=== PATIENT | female | born 1995 | race African-American/Black ===

== ENCOUNTER 2020-04-10 10:09 | Inpatient (IN) | payer MEDICAID ==
[~2020-04-10] VITALS: Ht 152.4 cm; Wt 47.2 kg
[2020-04-10] MEDS ORDERED: INFLUENZA VIRUS VACCINE QVS 2020-21 (6MO+)/PF 60 MCG/0.5 ML SYRINGE IM ONE (15:00)
[2020-04-10 15:42] VITALS: BP 130/71
[2020-04-10 16:16] VITALS: BP 121/79
[2020-04-10] MEDS: HALOPERIDOL 5 MG TABLET PO PRN (16:20)
[2020-04-10] MEDS: LORazepam 1 MG TABLET PO PRN (16:20)
[2020-04-10] MEDS: ZOLPIDEM TARTRATE 10 MG TABLET PO PRN (20:56)
[2020-04-11 05:23] VITALS: BP 116/72
[2020-04-11 08:16] VITALS: BP 142/97
[2020-04-11] MEDS: FLUoxetine HCL 20 MG CAPSULE PO SCH (08:25)
[2020-04-11] MEDS: OMEPRAZOLE 20 MG CAPSULE PO SCH (08:25)
[2020-04-11] MEDS: CETIRIZINE HCL 10 MG TABLET PO SCH (08:26)
[2020-04-11] MEDS: MONTELUKAST SODIUM 10 MG TABLET PO SCH (08:26)
[2020-04-11] MEDS ORDERED: CloNIDine HCL 0.1 MG TABLET PO PRN (09:00)
[2020-04-11] MEDS ORDERED: ALBUTEROL SULFATE HFA 90 MCG/PUFF 8 GM INHALER IH PRN (09:00)
[2020-04-11] MEDS ORDERED: ONDANSETRON HCL 4 MG TABLET PO PRN (09:00)
[2020-04-11] MEDS ORDERED: DOCUSATE SODIUM 100 MG CAPSULE PO PRN (09:00)
[2020-04-11] MEDS ORDERED: LOPERAMIDE HCL 2 MG CAPSULE PO PRN (09:00)
[2020-04-11] MEDS ORDERED: GuaiFENesin/D-METHORPHAN [SUGAR-FREE] 200-20MG/10 ML SYRUP UDCUP PO PRN (09:00)
[2020-04-11] MEDS ORDERED: MAG HYDROX/AL HYDROX/SIMETH ES 30 ML SUSPENSION UDCUP PO PRN (09:00)
[2020-04-11] MEDS ORDERED: ACETAMINOPHEN 325 MG TABLET PO PRN (09:00)
[2020-04-11] MEDS ORDERED: NICOTINE 14 MG/24 HOUR PATCH TD PRN (09:00)
[2020-04-11] MEDS ORDERED: PETROLATUM,WHITE 28 GM JELLY TP PRN (09:00)
[2020-04-11] MEDS ORDERED: MAGNESIUM HYDROXIDE SUSPENSION 30 ML UDCUP PO PRN (09:00)
[2020-04-11] MEDS ORDERED: IBUPROFEN 400 MG TABLET PO PRN (09:00)
[2020-04-11] MEDS: HALOPERIDOL 5 MG TABLET PO PRN ×2 (09:44→18:47)
[2020-04-11] MEDS: LORazepam 1 MG TABLET PO PRN ×2 (09:44→18:47)
[2020-04-11] MEDS ORDERED: FLUoxetine HCL 20 MG CAPSULE PO SCH (14:00)
[2020-04-11 16:09] VITALS: BP 117/73
[2020-04-11] MEDS: ZOLPIDEM TARTRATE 10 MG TABLET PO PRN (20:05)
[2020-04-12 01:46] VITALS: BP 112/74
[2020-04-12 08:21] VITALS: BP 139/90
[2020-04-12] MEDS: FLUoxetine HCL 20 MG CAPSULE PO SCH (09:43)
[2020-04-12] MEDS: OMEPRAZOLE 20 MG CAPSULE PO SCH (09:43)
[2020-04-12] MEDS: MONTELUKAST SODIUM 10 MG TABLET PO SCH (09:44)
[2020-04-12] MEDS: CETIRIZINE HCL 10 MG TABLET PO SCH (09:44)
[2020-04-12] MEDS: LORazepam 1 MG TABLET PO PRN ×3 (11:34→19:52)
[2020-04-12] MEDS: HALOPERIDOL 5 MG TABLET PO PRN (11:34)
[2020-04-12 17:25] VITALS: BP 118/83
[2020-04-12] MEDS: ZOLPIDEM TARTRATE 10 MG TABLET PO PRN (20:30)
[2020-04-13 00:53] VITALS: BP 112/71
[2020-04-13 08:31] VITALS: BP 110/62
[2020-04-13] MEDS: MONTELUKAST SODIUM 10 MG TABLET PO SCH (09:46)
[2020-04-13] MEDS: CETIRIZINE HCL 10 MG TABLET PO SCH (09:46)
[2020-04-13] MEDS: FLUoxetine HCL 20 MG CAPSULE PO SCH (09:46)
[2020-04-13] MEDS: OMEPRAZOLE 20 MG CAPSULE PO SCH (09:46)
[2020-04-13] MEDS ORDERED: OMEP20 PO (11:58)
[2020-04-13] MEDS ORDERED: MONT-35 PO (11:58)
[2020-04-13] MEDS ORDERED: FLUO-191 PO (11:58)
[2020-04-13] MEDS ORDERED: CETI1SOL83 PO (11:58)
== END 2020-04-13 14:30 | disposition home or self-care (01) | DRG 751 ==
LOC: B3A 13:30
PROVIDERS: ADMIT Psychiatry & Neurology Child & Adolescent Psychiatry; ATTEND Psychiatry & Neurology Child & Adolescent Psychiatry
DX: F33.2 Major depressive disorder, recurrent severe without psychotic features (principal); F10.10 Alcohol abuse, uncomplicated; Y90.9 Presence of alcohol in blood, level not specified; F41.9 Anxiety disorder, unspecified; J45.909 Unspecified asthma, uncomplicated; Z87.11 Personal history of peptic ulcer disease
CPT/HCPCS: 84439